=== PATIENT | female | born 1960 | race Caucasian/White ===

== ENCOUNTER → 2018-08-16 16:20 | Outpatient (CLI) | payer OTHER, SELFPAY ==
--- NOTE | 2018-08-16 16:22 | DI.RAD.S_ITS ---
PROCEDURE: XR CERVICAL SPINE 4V OR 5V INDICATIONS: neck pain and stiffness TECHNIQUE: 5 views of the cervical spine acquired. COMPARISON: None. FINDINGS: Bones: No fractures or dislocations to the T1 level. 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 Additionally anterior and posterior projecting osteophytes at the C5-6 level are associated with moderately severe degenerative disc disease centered at this level. Mild degenerative disc disease is seen at C4-5 and C6-7 shows moderate degenerative disc disease. Soft tissues: No prevertebral soft tissue swelling. IMPRESSION: No trauma found, the degenerative changes are probably centered at C5-6 with both likelihood of spinal and foraminal stenosis. Above and below that level there is mild to moderate degenerative disc disease, respectively. Dictated by: Yuri Granados M.D. on 08/16/2018 at 17:00 Approved by: Yuri Granados M.D. on 08/16/2018 at 17:01
== END ==
PROVIDERS: PCP Physician Assistant; Visit Provider Family Medicine
DX: M43.6 Torticollis (principal); R51 Headache; M47.812 Spondylosis without myelopathy or radiculopathy, cervical region; M48.02 Spinal stenosis, cervical region; M50.321 Other cervical disc degeneration at C4-C5 level
CPT/HCPCS: 72050